=== PATIENT | male | born 1950 | race Caucasian/White ===

== ENCOUNTER 2016-07-21 05:14 | Observation (INO) | payer MEDICAID, OTHER ==
--- NOTE | 2016-07-21 05:58 | C.PDOC ---
History Of Present Illness 66 y/o M c PMHx HTN p/w palpitations x 15 minutes approximately 2 hours ago. Patient states he awoke to go to the bathroom and when he returned to his bed, he felt palpitations for about 15 minutes. He states he has recently heard of a lot of people with various heart troubles, and he made himself anxious about his own health as he has not seen a physician for 2 years. He denies nausea, vomiting, diaphoresis, dyspnea, chest pain, leg swelling. He notes he felt congested this past week and received amoxil from his pharmacist. Time Seen by Provider: 07/21/16 05:54 Chief Complaint (Nursing): Palpitations Past Medical History Vital Signs: Last Vital Signs Temp 98 F 07/21/16 05:33 Pulse 72 07/21/16 05:33 Resp 14 07/21/16 05:33 BP 164/82 H 07/21/16 05:33 Pulse Ox 97 07/21/16 06:50 - Medical History PMH: HTN Family History: States: No Known Family Hx - Social History Hx Alcohol Use: No Hx Substance Use: No - Immunization History Hx Tetanus Toxoid Vaccination: No Hx Influenza Vaccination: No Hx Pneumococcal Vaccination: No Review Of Systems Except As Marked, All Systems Reviewed And Found Negative. Constitutional: Negative for: Fever Cardiovascular: Positive for: Palpitations. Negative for: Chest Pain Physical Exam - Physical Exam Additional Physical Exam Comments: Constitutional: No acute distress. Head: Normocephalic. Atraumatic. Eyes: PERRL. ENT: Moist mucous membranes. Neck: Supple. Cardiovascular: Regular rate. Radial pulse 2+ bilaterally. Chest: No tenderness. Respiratory: Clear to auscultation bilaterally. GI: Soft. Nontender. Nondistended. Back: No CVA tenderness. Musculoskeletal: No tenderness or swelling of extremities. Skin: No rash. Neurologic: Alert, no focal deficit. ED Course And Treatment - Laboratory Results Result Diagrams: 07/21/16 06:03 07/21/16 06:03 O2 Sat by Pulse Oximetry: 97 Medical Decision Making Medical Decision Making: EKG NSR 70 bpm, no ST/T wave changes. Will keep on monitor, check labs, CXR, and reassess. CXR no acute disease. Will keep patient for cardiac observation. Disposition - Disposition Disposition Time: 06:50 Condition: STABLE - Clinical Impression Clinical Impression: Palpitations
[2016-07-21 06:06] LABS: BASO % 0.3 % (0.0-2.0); EOS # 0.2 K/uL (0.0-0.7); EOS % 3.5 % (0.0-4.0); HEMATOCRIT 41.2 % (35.0-51.0); LYMPH % 28.6 % (20.0-40.0); MEAN CELL VOLUME 82.5 fL (80.0-94.0); MEAN CORPUSCULAR HEMOGLOBIN 27.8 pg (27.0-31.0); MEAN CORPUSCULAR HGB CONC 33.7 g/dL (33.0-37.0); MEAN PLATELET VOLUME 9.5 fL (7.2-11.7); MONO # 0.5 K/uL (0.0-0.8); MONO % 7.9 % (0.0-10.0); NRBC % 0.1 % (0.0-2.0); WHITE BLOOD COUNT 6.8 K/uL (4.8-10.8)
[2016-07-21 06:15] LABS: CHLORIDE 97 mmol/L (98-107)
[2016-07-21 06:16] LABS: POTASSIUM 3.1 mmol/L (3.6-5.2); SODIUM 138 mmol/L (132-148)
[2016-07-21 06:18] LABS: ALB/GLOB RATIO 1.5 (1.0-2.1); ALKALINE PHOSPHATASE 65 U/L (38-126); AST/SGOT 29 U/L (17-59); BILIRUBIN,TOTAL 0.3 mg/dL (0.2-1.3); CARBON DIOXIDE 28 mmol/L (22-30); GFR AFRICAN-AMERICAN > 60; TOTAL PROTEIN 7.1 g/dL (6.3-8.3)
[2016-07-21 06:19] LABS: ALT/SGPT 24 U/L (21-72); BLOOD UREA NITROGEN 13 mg/dL (9-20); CALCIUM 9.2 mg/dl (8.6-10.4); GLUCOSE,RANDOM 162 mg/dL (75-110)
[2016-07-21] MEDS ORDERED: Potassium Chloride 20 mEq ER Tab PO ONE ×2 (07:13→07:21)
--- NOTE | 2016-07-21 07:37 | CP.PCM.HP ---
<Axel Herrera - Last Filed: 07/21/16 08:00> History of Present Illness - History of Present Illness History of Present Illness: cc: "palpitations" HPI: Patient is a year old male with PMHx of htn presenting to the ED complaining of palpitations. Patient reports that he woke up around 4am and went to urinate and after he had finished, he was walking back to bed when he started feeling palpitations. He then started to become anxious, as he had heard about friends and family that had heart problems and was concerned that he may have one. He says he has not been to his PMD in about 2 years because he had lost his insurance. He denied any chest pain, palpitations, dyspnea, diaphoresis, nausea, vomiting. He said the palpitations continued for about 15 minutes then resolved. By the time the ambulance came, he was feeling better. They measured his heart rate to be about 80. He says he is compliant with his medication. PMHx: Htn PSHx: Denies Allergies: NKDA Fam hx: noncontributory Social hx: Denies hx of smoking, alcohol, drugs Present on Admission - Present on Admission Any Indicators Present on Admission: No Review of Systems - Constitutional Constitutional: absent: Chills, Daytime Sleepiness, Excessive Sweating - Cardiovascular Cardiovascular: Palpitations. absent: Chest Pain, Chest Pain with Activity, Claudication, Dyspnea on Exertion, Irregular Heart Rhythm, Leg Edema, Syncope - Respiratory Respiratory: absent: Cough, Dyspnea, Dyspnea on Exertion, Wheezing - Gastrointestinal Gastrointestinal: absent: Abdominal Pain, Constipation, Diarrhea, Nausea, Vomiting - Genitourinary Genitourinary: absent: Difficulty Urinating, Dysuria - Musculoskeletal Musculoskeletal: absent: Back Pain, Myalgias, Numbness, Tingling - Integumentary Integumentary: absent: Sores, Swelling, Wounds - Neurological Neurological: absent: Abnormal Movements, Tremor, Weakness - Psychiatric Psychiatric: Anxiety. absent: Change in Appetite, Difficulty Concentrating, Panic Attacks, Suicidal Ideation - Endocrine Endocrine: Palpitations. absent: Fatigue Past Patient History - Past Social History Smoking Status: Never Smoked Chewing Tobacco Use: No Cigar Use: No Alcohol: None Drugs: Denies - CARDIAC Hx Hypertension: Yes - PSYCHIATRIC Hx Substance Use: No - SURGICAL HISTORY Hx Surgeries: No Meds Allergies/Adverse Reactions: Allergies Allergy/AdvReac Type Severity Reaction Status Date / Time No Known Allergies Allergy Unverified 07/21/16 05:36 Physical Exam - Constitutional Appears: Non-toxic, No Acute Distress - Head Exam Head Exam: ATRAUMATIC, NORMAL INSPECTION, NORMOCEPHALIC - Eye Exam Pupil Exam: NORMAL ACCOMODATION, PERRL - ENT Exam ENT Exam: Mucous Membranes Moist - Respiratory Exam Respiratory Exam: Clear to Auscultation Bilateral, NORMAL BREATHING PATTERN. absent: Prolonged Expiratory Phase, Rales, Rhonchi, Wheezes - Cardiovascular Exam Cardiovascular Exam: REGULAR RHYTHM, +S1, +S2 - GI/Abdominal Exam GI & Abdominal Exam: Normal Bowel Sounds, Soft. absent: Firm, Guarding, Tenderness - Extremities Exam Extremities exam: Positive for: normal capillary refill, pedal pulses present - Neurological Exam Neurological exam: Alert, Oriented x3 - Psychiatric Exam Psychiatric exam: Normal Affect, Normal Mood - Skin Skin Exam: Dry, Intact, Normal Color, Warm Results - Vital Signs Recent Vital Signs: Last Vital Signs Temp 98 F 07/21/16 05:33 Pulse 72 07/21/16 05:33 Resp 14 07/21/16 05:33 BP 164/82 H 07/21/16 05:33 Pulse Ox 97 07/21/16 07:02 - Labs Result Diagrams: 07/21/16 06:03 07/21/16 06:03 Assessment & Plan - Assessment and Plan (Free Text) Assessment: Palpitations Consult Cardiology- Dr. Gutierrez EKG- NSR 68 bpm f/u echo f/u Mg, PHos MARBELLA negative x 1 (0.0230) f/u additional ROMIs / EKGs x 2 f/u UDS ASA 325mg given in ED, start Asa 81mg tomorrow f/u lipid panel f/u D-dimer CXR appears normal- f/u official report Hyperglycemia Random Glucose 162 f/u HgbA1C Hypertension Started patient on lisinopril 10mg PO Daily Prophylactic Measures SCDs Heparin 5000U Q8h Pepcid 20mg PO BID <Katie Clemons V - Last Filed: 07/21/16 14:18> Results - Vital Signs Recent Vital Signs: Last Vital Signs Temp 97.6 F 07/21/16 08:35 Pulse 64 07/21/16 08:35 Resp 20 07/21/16 08:35 BP 159/97 H 07/21/16 08:35 Pulse Ox 100 07/21/16 08:35 - Labs Result Diagrams: 07/21/16 06:03 07/21/16 06:03 Labs: Laboratory Results - last 24 hr 07/21/16 07/21/16 08:04 08:51 D-Dimer, Quantitative < 200 Phosphorus 2.4 L Magnesium 1.9 Assessment & Plan (1) Palpitations Status: Acute Comment: Placed on observation on telemetry. Consult Cardiology- Dr. Gutierrez on board; help appreciated. EKG- NSR 68 bpm. f/u echo. f/u Mg, PHos. MARBELLA negative x 1 (0.0230), MARBELLA and EKG @2PM, MARBELLA and EKG @8PM. f/u UDS. ASA 325mg given in ED; start Asa 81mg tomorrow as a cardio-protective measure. f/u D-dimer. CXR appears normal- f/u official report (2) Hypertension Status: Chronic Comment: Start Lisinopril 10mg PO daily. Patient cannot recall medication he takes at home and attempted to contact his pharmacy this morning and could not reach (3) Hyperglycemia Status: Suspected Comment: Random Glucose 162. f/u HgbA1C. Accuchecks QAC and HS (4) Prophylactic measure Status: Acute Comment: SCDs. Heparin 5000U Q8h. Pepcid 20mg PO BID Attending/Attestation - Attestation I have personally seen and examined this patient.: Yes I have fully participated in the care of the patient.: Yes I have reviewed all pertinent clinical information: Yes Notes (Text): Patient seen, examined, case discussed with day-time resident. Patient seen in [facility] ED at approximately 7:25AM with patient's son at bedside. Discussed admitting orders with day-time resident. Cardiology consult Echocardiogram ordered Started on Davy-inhibitor for blood pressure observation on telemetry for abnormal arrhythmias Start on ASA for cardioprotective measure
--- NOTE | 2016-07-21 07:59 | CP.PCM.CON ---
History of Present Illness - History of Present Illness History of Present Illness: called to see 66 year old male complaining of palpitations off and on not asociated with chest pain nausea. Spoke to son worried about dad and felt to should come in to hospital. Review of Systems - Review of Systems Systems not reviewed;Unavailable: Acuity of Condition - Constitutional Constitutional: absent: Excessive Sweating - EENT Eyes: absent: Change in Vision Nose/Mouth/Throat: absent: Nasal Discharge - Cardiovascular Cardiovascular: absent: Chest Pain - Respiratory Respiratory: absent: Dyspnea - Gastrointestinal Gastrointestinal: absent: Constipation - Genitourinary Genitourinary: absent: Dysuria - Musculoskeletal Musculoskeletal: absent: Arthralgias - Integumentary Integumentary: absent: Wounds - Neurological Neurological: absent: Abnormal Hearing - Psychiatric Psychiatric: absent: Anxiety - Endocrine Endocrine: Palpitations. absent: Fatigue - Hematologic/Lymphatic Hematologic: absent: Easy Bleeding Past Patient History - Past Social History Smoking Status: Never Smoked - CARDIAC Hx Hypertension: Yes - PSYCHIATRIC Hx Substance Use: No - SURGICAL HISTORY Hx Surgeries: No Meds Home Medications: Home Medication List Medication Instructions Recorded Confirmed Type Aspirin [Aspirin Chewable] 81 mg PO DAILY #30 chew 07/22/16 Rx Lisinopril [Zestril] 10 mg PO DAILY #30 tab 07/22/16 Rx Allergies/Adverse Reactions: Allergies Allergy/AdvReac Type Severity Reaction Status Date / Time No Known Allergies Allergy Unverified 07/21/16 05:36 - Medications Medications: Current Medications Aspirin (Aspirin Chewable) 81 mg PO DAILY [facility]ID Lisinopril (Zestril) 10 mg PO DAILY [facility]ID Physical Exam - Constitutional Appears: Well - Head Exam Head Exam: NORMOCEPHALIC - Eye Exam Eye Exam: Normal appearance - ENT Exam ENT Exam: Mucous Membranes Moist - Respiratory Exam Respiratory Exam: Clear to Auscultation Bilateral - Cardiovascular Exam Cardiovascular Exam: REGULAR RHYTHM - GI/Abdominal Exam GI & Abdominal Exam: Soft - Exam External exam: NORMAL EXTERNAL EXAM - Extremities Exam Extremities exam: Positive for: normal inspection - Neurological Exam Neurological exam: Alert - Psychiatric Exam Psychiatric exam: Normal Mood - Skin Skin Exam: Dry Results - Vital Signs Recent Vital Signs: Last Vital Signs Temp 98 F 07/21/16 05:33 Pulse 72 07/21/16 05:33 Resp 14 07/21/16 05:33 BP 164/82 H 07/21/16 05:33 Pulse Ox 97 07/21/16 07:02 - Labs Result Diagrams: 07/22/16 06:00 07/22/16 06:00 Assessment & Plan (1) Palpitations Assessment and Plan: meds continue betablocker for palps and will treat bp Status: Acute
[2016-07-21 09:06] VITALS: RESP 20
[2016-07-21 09:08] LABS: MAGNESIUM 1.9 mg/dL (1.6-2.3); PHOSPHOROUS 2.4 mg/dL (2.5-4.5)
--- NOTE | 2016-07-21 10:01 | RAD ---
HISTORY: r/o PNA COMPARISON: None available. TECHNIQUE: Chest, one view. FINDINGS: LUNGS: Mild streaky atelectasis within the medial right lung apex. No focal consolidation. Please note that chest x-ray has limited sensitivity for the detection of pulmonary masses. PLEURA: No significant pleural effusion identified. No definite pneumothorax . CARDIOVASCULAR: Heart size appears top normal. OSSEOUS STRUCTURES: Degenerative changes. VISUALIZED UPPER ABDOMEN: Elevation of the right hemidiaphragm. OTHER FINDINGS: None. IMPRESSION: Streaky atelectasis within the medial right lung apex. Elevation of the right hemidiaphragm.
[2016-07-21] MEDS ORDERED: Potassium & Sodium Phosphate PO ONE (13:35)
[2016-07-21] MEDS ORDERED: Glucagon Recombinant 1 mg Inj IV STA (15:37)
--- NOTE | 2016-07-22 03:38 | CP.PCM.PN ---
Subjective - Date & Time of Evaluation Date of Evaluation: 07/22/16 Time of Evaluation: 03:20 - Subjective Subjective: Palpitations less on meds tolerating PO Objective - Vital Signs/Intake and Output Vital Signs (last 24 hours): Temp Pulse Resp BP Pulse Ox 98 F 59 L 20 110/79 98 07/21/16 23:10 07/22/16 00:10 07/21/16 23:10 07/21/16 23:10 07/21/16 23:10 Intake and Output: 07/21/16 07/22/16 18:59 06:59 Intake Total 720 Balance 720 - Medications Medications: Current Medications Aspirin (Aspirin Chewable) 81 mg PO DAILY [facility] Famotidine (Pepcid) 20 mg PO BID [facility] Last Admin: 07/21/16 18:49 Dose: 20 mg Heparin Sodium (Porcine) (Heparin) 5,000 units SC Q8 [facility] Last Admin: 07/21/16 21:33 Dose: 5,000 units Lisinopril (Zestril) 10 mg PO DAILY [facility] Last Admin: 07/21/16 10:45 Dose: 10 mg Pneumococcal Polyvalent Vaccine (Pneumovax 23 Vaccine) 0.5 ml IM .ONCE ONE Stop: 07/23/16 10:01 - Constitutional Appears: Well - Head Exam Head Exam: NORMOCEPHALIC - Eye Exam Eye Exam: Normal appearance - Respiratory Exam Respiratory Exam: Clear to Ausculation Bilateral - Cardiovascular Exam Cardiovascular Exam: REGULAR RHYTHM - GI/Abdominal Exam GI & Abdominal Exam: Normal Bowel Sounds - Exam External exam: NORMAL EXTERNAL EXAM - Extremities Exam Extremities Exam: Normal Inspection - Neurological Exam Neurological Exam: Alert, Awake - Psychiatric Exam Psychiatric exam: Normal Affect - Skin Skin Exam: Dry Assessment and Plan (1) Palpitations Assessment & Plan: continue rate control no cp outpt exercise stress test Status: Acute
[2016-07-22 06:30] LABS: CHLORIDE 99 mmol/L (98-107); SODIUM 139 mmol/L (132-148)
[2016-07-22 06:31] LABS: POTASSIUM 3.3 mmol/L (3.6-5.2)
[2016-07-22 06:32] LABS: CHOLESTEROL 202 mg/dL (0-199)
[2016-07-22 06:33] LABS: ALB/GLOB RATIO 1.5 (1.0-2.1); ALKALINE PHOSPHATASE 55 U/L (38-126); ALT/SGPT 25 U/L (21-72); AST/SGOT 23 U/L (17-59); BLOOD UREA NITROGEN 11 mg/dL (9-20); CARBON DIOXIDE 28 mmol/L (22-30); GFR AFRICAN-AMERICAN > 60; GLUCOSE,RANDOM 90 mg/dL (75-110); PHOSPHOROUS 3.3 mg/dL (2.5-4.5); TOTAL PROTEIN 6.7 g/dL (6.3-8.3)
[2016-07-22 06:34] LABS: CALCIUM 8.6 mg/dl (8.6-10.4); MAGNESIUM 1.9 mg/dL (1.6-2.3)
[2016-07-22 08:03] LABS: BASO % 0.2 % (0.0-2.0); EOS # 0.1 K/uL (0.0-0.7); EOS % 1.9 % (0.0-4.0); HEMATOCRIT 43.1 % (35.0-51.0); LYMPH # 1.8 K/uL (1.0-4.3); LYMPH % 25.9 % (20.0-40.0); MEAN CELL VOLUME 82.2 fL (80.0-94.0); MEAN CORPUSCULAR HEMOGLOBIN 27.7 pg (27.0-31.0); MEAN CORPUSCULAR HGB CONC 33.7 g/dL (33.0-37.0); MEAN PLATELET VOLUME 9.8 fL (7.2-11.7); MONO # 0.5 K/uL (0.0-0.8); MONO % 7.4 % (0.0-10.0); NRBC % 0.1 % (0.0-2.0); RED CELL DISTRIBUTION WIDTH 13.1 % (11.5-14.5); WHITE BLOOD COUNT 7.1 K/uL (4.8-10.8)
[2016-07-22] MEDS ORDERED: Potassium Chloride 20 mEq ER Tab PO ONE (09:12)
--- NOTE | 2016-07-22 13:31 | CP.PCM.DIS ---
<Katie Clemons V - Last Filed: 07/22/16 17:22> Provider - Provider Date of Admission: 07/21/16 07:13 Attending physician: Katie Clemons DO Diagnosis - Discharge Diagnosis (1) Palpitations Status: Acute (2) Hypertension Status: Chronic (3) Hyperglycemia Status: Suspected (4) Prophylactic measure Status: Acute Hospital Course - Lab Results Lab Results: Most Recent Lab Values WBC 7.1 K/uL (4.8-10.8) 07/22/16 06:00 RBC 5.25 Mil/uL (4.40-5.90) 07/22/16 06:00 Hgb 14.5 g/dL (12.0-18.0) 07/22/16 06:00 Hct 43.1 % (35.0-51.0) 07/22/16 06:00 MCV 82.2 fL (80.0-94.0) 07/22/16 06:00 MCH 27.7 pg (27.0-31.0) 07/22/16 06:00 MCHC 33.7 g/dL (33.0-37.0) 07/22/16 06:00 RDW 13.1 % (11.5-14.5) 07/22/16 06:00 Plt Count 183 K/uL (130-400) 07/22/16 06:00 MPV 9.8 fL (7.2-11.7) 07/22/16 06:00 Neut % (Auto) 64.6 % (50.0-75.0) 07/22/16 06:00 Lymph % (Auto) 25.9 % (20.0-40.0) 07/22/16 06:00 Erie % (Auto) 7.4 % (0.0-10.0) 07/22/16 06:00 Eos % (Auto) 1.9 % (0.0-4.0) 07/22/16 06:00 Baso % (Auto) 0.2 % (0.0-2.0) 07/22/16 06:00 Neut # 4.6 K/uL (1.8-7.0) 07/22/16 06:00 Lymph # 1.8 K/uL (1.0-4.3) 07/22/16 06:00 Erie # 0.5 K/uL (0.0-0.8) 07/22/16 06:00 Eos # 0.1 K/uL (0.0-0.7) 07/22/16 06:00 Baso # 0.0 K/uL (0.0-0.2) 07/22/16 06:00 D-Dimer, Quantitative < 200 ng/mlDDU (0-243) 07/21/16 08:04 Sodium 139 mmol/L (132-148) 07/22/16 06:00 Potassium 3.3 mmol/L (3.6-5.2) L 07/22/16 06:00 Chloride 99 mmol/L (98-107) 07/22/16 06:00 Carbon Dioxide 28 mmol/L (22-30) 07/22/16 06:00 Anion Gap 15 (10-20) 07/22/16 06:00 BUN 11 mg/dL (9-20) 07/22/16 06:00 Creatinine 0.8 MG/DL (0.8-1.5) 07/22/16 06:00 Est GFR ( Amer) > 60 07/22/16 06:00 Est GFR (Non-Af Amer) > 60 07/22/16 06:00 Random Glucose 90 mg/dL (75-110) 07/22/16 06:00 Calcium 8.6 mg/dl (8.6-10.4) 07/22/16 06:00 Phosphorus 3.3 mg/dL (2.5-4.5) 07/22/16 06:00 Magnesium 1.9 mg/dL (1.6-2.3) 07/22/16 06:00 Total Bilirubin 1.0 mg/dL (0.2-1.3) 07/22/16 06:00 AST 23 U/L (17-59) 07/22/16 06:00 ALT 25 U/L (21-72) 07/22/16 06:00 Alkaline Phosphatase 55 U/L (38-126) 07/22/16 06:00 Total Creatine Kinase 191 U/L (55-170) H 07/21/16 22:54 CK-MB (Mass) 2.67 ng/mL (0.0-3.38) 07/21/16 22:54 Troponin I 0.0230 ng/mL (0.00-0.120) 07/21/16 06:03 Troponin I, Quant 0.0250 ng/mL (0.00-0.120) 07/21/16 22:54 Total Protein 6.7 g/dL (6.3-8.3) 07/22/16 06:00 Albumin 4.0 g/dL (3.5-5.0) 07/22/16 06:00 Globulin 2.7 gm/dL (2.2-3.9) 07/22/16 06:00 Albumin/Globulin Ratio 1.5 (1.0-2.1) 07/22/16 06:00 Triglycerides 146 mg/dL (0-149) 07/22/16 06:00 Cholesterol 202 mg/dL (0-199) H 07/22/16 06:00 LDL Cholesterol Direct 130 mg/dL (0-129) H 07/22/16 06:00 HDL Cholesterol 36 mg/dL (30-70) 07/22/16 06:00 Urine Opiates Screen Negative (NEGATIVE) 07/21/16 22:47 Urine Methadone Screen Negative (NEGATIVE) 07/21/16 22:47 Ur Barbiturates Screen Negative (NEGATIVE) 07/21/16 22:47 Ur Phencyclidine Scrn Negative (NEGATIVE) 07/21/16 22:47 Ur Amphetamines Screen Negative (NEGATIVE) 07/21/16 22:47 U Benzodiazepines Scrn Negative (NEGATIVE) 07/21/16 22:47 U Oth Cocaine Metabols Negative (NEGATIVE) 07/21/16 22:47 U Cannabinoids Screen Negative (NEGATIVE) 07/21/16 22:47 Discharge Plan - Discharge Medications Prescriptions: Aspirin [Aspirin Chewable] 81 mg PO DAILY #30 chew Lisinopril [Zestril] 10 mg PO DAILY #30 tab - Follow Up Plan Condition: STABLE Disposition: HOME/ ROUTINE Instructions: Lisinopril (By mouth), Aspirin (By mouth), Coronary Artery Disease (DC), Palpitations (DC), Heart Healthy Diet (DC) Additional Instructions: Patient medically stable for discharge as per Dr. Clemons. Patient to take new medications Aspirin 81 mg by mouth daily and Lisinorpil 10 mg by mouth daily. Patient is to stop home medication Atenolol. Patient is to establish and follow up with [facility] in [facility] Cardiology (Dr. Gutierrez) within 1 week of discharge. Patient is to follow up on Hemoglobin A1C. He is to eat low carb diet and exercise regularly. Patient is adviseed to get an Echocardiogram done as outpatient as well. Please return to ER if symptoms persist or condition worsens. All instructions stated above were discussed in detail with patient. He verbalized understanding and agreement. Referrals: Jeremiah Gutierrez MD [Staff Provider] - Esmer Shaw MD [Staff Provider] - Attending/Attestation - Attestation I have personally seen and examined this patient.: Yes I have fully participated in the care of the patient.: Yes I have reviewed all pertinent clinical information, including history, physical exam and plan: Yes Notes (Text): Patient seen, examined and case discussed with day-time resident. Patient reports he is feeling much better. Patient denies dizziness, denies lightheadedness, denies chest pain, denies palpitations other than on his admission. Yesterday, patient was bradycardic but he was also restarted on his Atenolol, asymptomatic. On telemetry became as low as 49-51 HR. patient given 1amp of glucagon to reverse and discontinued. Case discussed with cardiology, patient stable for discharge recommended to follow-up in the clinic for further outpatient workup. Discharge instructions discussed with patient at length, patient recommended to take Aspirin as a prophylactic measure and started on new medication Lisinopril 10mg PO daily to help control his blood pressure. Patient also advised if symptoms recur to come back to the emergency room immediately. Patient verbalizes understanding and agrees. This is a summary of patient's hospitalization. Please see EMR for further details. Assessment/Plan (1) Palpitations Status: stable Comment: Placed on observation on telemetry. Consult Cardiology- Dr. Gutierrez on board; help appreciated. EKG- NSR 68 bpm. Patient is asymptomatic and bradycardia on the monitor. Beta alan discontinued. Patient reports he is ambulatory during hospitalization and denies any symptoms. Patient recommended to follow-up with cardiology as outpatient. Patient discharged on Aspirin 81mg PO daily and Lisinopril 10mg Po daily (one month supply). (2) Hypertension Status: Chronic Comment: patient discharged on Lisinopril 10mg Po daily. Recommended for diet and exercise modifcations (3) Hyperglycemia Status: Suspected Comment: Random Glucose 162. Result of Hgba1c not available at this time; patient advised to follow-up in the clinic for results of A1c. (4) Prophylactic measure Status: Acute Comment: SCDs. Heparin 5000U Q8h. Pepcid 20mg PO BID <Alexis Verdugo - Last Filed: 07/22/16 22:49> Provider - Provider Date of Admission: 07/21/16 07:13 Attending physician: Katie Clemons DO Consults: Cardio: Voudouris Time Spent in preparation of Discharge (in minutes): 40 Diagnosis - Discharge Diagnosis (1) Palpitations Status: Acute Comment: see hospital course (2) Hypertension Status: Chronic Comment: see hospital course Hospital Course - Lab Results Lab Results: Most Recent Lab Values WBC 7.1 K/uL (4.8-10.8) 07/22/16 06:00 RBC 5.25 Mil/uL (4.40-5.90) 07/22/16 06:00 Hgb 14.5 g/dL (12.0-18.0) 07/22/16 06:00 Hct 43.1 % (35.0-51.0) 07/22/16 06:00 MCV 82.2 fL (80.0-94.0) 07/22/16 06:00 MCH 27.7 pg (27.0-31.0) 07/22/16 06:00 MCHC 33.7 g/dL (33.0-37.0) 07/22/16 06:00 RDW 13.1 % (11.5-14.5) 07/22/16 06:00 Plt Count 183 K/uL (130-400) 07/22/16 06:00 MPV 9.8 fL (7.2-11.7) 07/22/16 06:00 Neut % (Auto) 64.6 % (50.0-75.0) 07/22/16 06:00 Lymph % (Auto) 25.9 % (20.0-40.0) 07/22/16 06:00 Erie % (Auto) 7.4 % (0.0-10.0) 07/22/16 06:00 Eos % (Auto) 1.9 % (0.0-4.0) 07/22/16 06:00 Baso % (Auto) 0.2 % (0.0-2.0) 07/22/16 06:00 Neut # 4.6 K/uL (1.8-7.0) 07/22/16 06:00 Lymph # 1.8 K/uL (1.0-4.3) 07/22/16 06:00 Erie # 0.5 K/uL (0.0-0.8) 07/22/16 06:00 Eos # 0.1 K/uL (0.0-0.7) 07/22/16 06:00 Baso # 0.0 K/uL (0.0-0.2) 07/22/16 06:00 D-Dimer, Quantitative < 200 ng/mlDDU (0-243) 07/21/16 08:04 Sodium 139 mmol/L (132-148) 07/22/16 06:00 Potassium 3.3 mmol/L (3.6-5.2) L 07/22/16 06:00 Chloride 99 mmol/L (98-107) 07/22/16 06:00 Carbon Dioxide 28 mmol/L (22-30) 07/22/16 06:00 Anion Gap 15 (10-20) 07/22/16 06:00 BUN 11 mg/dL (9-20) 07/22/16 06:00 Creatinine 0.8 MG/DL (0.8-1.5) 07/22/16 06:00 Est GFR ( Amer) > 60 07/22/16 06:00 Est GFR (Non-Af Amer) > 60 07/22/16 06:00 Random Glucose 90 mg/dL (75-110) 07/22/16 06:00 Calcium 8.6 mg/dl (8.6-10.4) 07/22/16 06:00 Phosphorus 3.3 mg/dL (2.5-4.5) 07/22/16 06:00 Magnesium 1.9 mg/dL (1.6-2.3) 07/22/16 06:00 Total Bilirubin 1.0 mg/dL (0.2-1.3) 07/22/16 06:00 AST 23 U/L (17-59) 07/22/16 06:00 ALT 25 U/L (21-72) 07/22/16 06:00 Alkaline Phosphatase 55 U/L (38-126) 07/22/16 06:00 Total Creatine Kinase 191 U/L (55-170) H 07/21/16 22:54 CK-MB (Mass) 2.67 ng/mL (0.0-3.38) 07/21/16 22:54 Troponin I 0.0230 ng/mL (0.00-0.120) 07/21/16 06:03 Troponin I, Quant 0.0250 ng/mL (0.00-0.120) 07/21/16 22:54 Total Protein 6.7 g/dL (6.3-8.3) 07/22/16 06:00 Albumin 4.0 g/dL (3.5-5.0) 07/22/16 06:00 Globulin 2.7 gm/dL (2.2-3.9) 07/22/16 06:00 Albumin/Globulin Ratio 1.5 (1.0-2.1) 07/22/16 06:00 Triglycerides 146 mg/dL (0-149) 07/22/16 06:00 Cholesterol 202 mg/dL (0-199) H 07/22/16 06:00 LDL Cholesterol Direct 130 mg/dL (0-129) H 07/22/16 06:00 HDL Cholesterol 36 mg/dL (30-70) 07/22/16 06:00 Urine Opiates Screen Negative (NEGATIVE) 07/21/16 22:47 Urine Methadone Screen Negative (NEGATIVE) 07/21/16 22:47 Ur Barbiturates Screen Negative (NEGATIVE) 07/21/16 22:47 Ur Phencyclidine Scrn Negative (NEGATIVE) 07/21/16 22:47 Ur Amphetamines Screen Negative (NEGATIVE) 07/21/16 22:47 U Benzodiazepines Scrn Negative (NEGATIVE) 07/21/16 22:47 U Oth Cocaine Metabols Negative (NEGATIVE) 07/21/16 22:47 U Cannabinoids Screen Negative (NEGATIVE) 07/21/16 22:47 - Hospital Course Hospital Course: 66M with PMHx of htn presenting to the ED complaining of palpitations. Patient reports that he woke up around 4am and went to urinate and after he had finished , he was walking back to bed when he started feeling palpitations. He then started to become anxious, as he had heard about friends and family that had heart problems and was concerned that he may have one. He says he has not been to his PMD in about 2 years because he had lost his insurance. He denied any chest pain, palpitations, dyspnea, diaphoresis, nausea, vomiting. He said the palpitations continued for about 15 minutes then resolved. By the time the ambulance came, he was feeling better. They measured his heart rate to be about 80. He says he is compliant with his medication. Patient was admitted to telemetry observation for palpitations. EKG showed NSR at 68 bpm. Cardiac enzymes were drawn and negative three times. Cardiology was consulted, Dr. Gutierrez. Overnight, patient had a few episodes of Bradycardia. The next day, patietn was asymptomatic and feeling fine. Cardiology cleared the patient for discharge with outpatient follow up. Patient was then deemed medically stable by Dr. Clemons and instructed to establish care in clint clinic at [facility] in order to follow up with Cardiology as outpatient. This is a summary of the hospital course. Please refer to EMR for more specific details. Discharge Exam - Head Exam Head Exam: ATRAUMATIC, NORMAL INSPECTION, NORMOCEPHALIC - Eye Exam Eye Exam: EOMI, Normal appearance Pupil Exam: PERRL - ENT Exam ENT Exam: Mucous Membranes Moist - Neck Exam Neck exam: Normal Inspection - Respiratory Exam Respiratory Exam: Clear to PA & Lateral, NORMAL BREATHING PATTERN - Cardiovascular Exam Cardiovascular Exam: REGULAR RHYTHM, +S1, +S2 - GI/Abdominal Exam GI & Abdominal Exam: Normal Bowel Sounds, Soft. absent: Tenderness - Extremities Exam Extremities exam: normal capillary refill, pedal pulses present - Back Exam Back exam: absent: CVA tenderness (L), CVA tenderness (R) - Neurological Exam Neurological exam: Alert, CN II-XII Intact, Oriented x3 - Psychiatric Exam Psychiatric exam: Normal Affect, Normal Mood - Skin Skin Exam: Dry, Intact, Normal Color, Warm
[2016-07-22] MEDS ORDERED: Pneumococcal 23-Valent Vaccine IM ONE (14:00)
[2016-07-22 15:53] VITALS: BP 117/73; PULSE 57; TEMP 98.1; O2SAT 98
[2016-07-23] MEDS ORDERED: Pneumococcal 23-Valent Vaccine IM ONE (10:00)
--- NOTE | 2016-07-23 12:45 | CARD ---
APPROVED REPORT EKG Measurement Heart [id number] <Conclusion> Sinus bradycardia ST abnormality, possible digitalis effect Abnormal ECG
--- NOTE | 2016-07-23 12:46 | CARD ---
APPROVED REPORT EKG Measurement Heart [id number] ID [id number] <Conclusion> Normal sinus rhythm Normal ECG
== END 2016-07-22 17:30 | disposition home or self-care (01) ==
LOC: C.ER 05:14 → C.9E 07:13 → C.6T 07:51
PROVIDERS: ADMIT Hospitalist; ATTEND Hospitalist
DX: R00.2 Palpitations (principal); I10 Essential (primary) hypertension; R73.9 Hyperglycemia, unspecified; Z23 Encounter for immunization
CPT/HCPCS: 36415; 71010; 80053; 80061; 82550; 82553; 83036; 83735; 84100; 84484; 85025; 85378; 90732; 93005; 99285; G0009; G0378; G0480; J1610; J1644

== ENCOUNTER 2016-07-24 12:17 | Emergency (ER) | payer MEDICAID, OTHER ==
--- NOTE | 2016-07-24 13:44 | C.PDOC ---
History Of Present Illness 66 y/o male presents to the ED with complains of palpitations the past few days. Pt was admitted for the same 3 days ago, discharged 2 days ago with instructions to follow up with cardiology as soon as possible. Palpitations recurred today while sitting. Pt denies any associated symptoms. Pt denies recent stressors except that and son are returning to the [place] after being gone for 6 months. Time Seen by Provider: 07/24/16 13:21 Chief Complaint (Nursing): Palpitations History Per: Patient History/Exam Limitations: no limitations Onset/Duration Of Symptoms: Days, Intermittent Episodes Current Symptoms Are (Timing): Still Present Severity: Moderate Reports Recently: Hospitalized Recent travel outside of the [place]: No Past Medical History Reviewed: Historical Data, Nursing Documentation, Vital Signs Vital Signs: Last Vital Signs Temp 97.8 F 07/24/16 14:00 Pulse 76 07/24/16 14:00 Resp 76 H 07/24/16 14:00 BP 149/91 H 07/24/16 14:00 Pulse Ox 100 07/24/16 15:04 - Medical History PMH: HTN Surgical History: No Surg Hx Family History: States: Unknown Family Hx - Social History Hx Tobacco Use: No Hx Alcohol Use: No Hx Substance Use: No Review Of Systems Constitutional: Negative for: Fever Cardiovascular: Positive for: Palpitations. Negative for: Chest Pain Respiratory: Negative for: Cough, Shortness of Breath Gastrointestinal: Negative for: Nausea, Vomiting, Abdominal Pain Neurological: Negative for: Headache Physical Exam - Physical Exam Appears: Non-toxic, No Acute Distress Skin: Warm, Dry, No Rash Head: Atraumatic, Normacephalic Neck: Supple Cardiovascular: Rhythm Regular, No Murmur Respiratory: Normal Breath Sounds, No Rales, No Rhonchi, No Wheezing Gastrointestinal/Abdominal: Soft, No Tenderness Extremity: Normal ROM Extremity: Bilateral: Atraumatic Neurological/Psych: Oriented x3, Normal Speech ED Course And Treatment ECG: Interpreted By Me, Viewed By Me ECG Rhythm: Sinus Rhythm ECG Interpretation: Normal Rate From EC (BPM) O2 Sat by Pulse Oximetry: 100 (room air) Pulse Ox Interpretation: Normal Medical Decision Making Medical Decision Making: No ectopy while in the ED No indication for further w/u as pt was dc'ed 2 days ago EKG unremarkable Plan dc home clinic f/u Disposition Counseled Patient/Family Regarding: Diagnosis, Need For Followup - Disposition Referrals: [facility] [Outside] Disposition: HOME/ ROUTINE Disposition Time: 13:42 Condition: GOOD Additional Instructions: Take meds started in the hospital Follow up as arranged at discharge Instructions: Palpitations (ED) - Clinical Impression Clinical Impression: Palpitations - Scribe Statement The provider has reviewed the documentation as recorded by the Lcuy Murcia Provider Attestation: All medical record entries made by the Lucy were at my direction and personally dictated by me. I have reviewed the chart and agree that the record accurately reflects my personal performance of the history, physical exam, medical decision making, and the department course for this patient. I have also personally directed, reviewed, and agree with the discharge instructions and disposition.
[2016-07-24 14:01] VITALS: BP 149/91; PULSE 76; RESP 76; TEMP 97.8
[2016-07-24 15:02] VITALS: O2SAT 100
== END 2016-07-24 14:13 | disposition home or self-care (01) ==
LOC: C.ER 12:17
DX: R00.2 Palpitations (principal)